=== PATIENT | female | born 1990 | race Caucasian/White ===

== ENCOUNTER 2017-07-02 16:02 | Emergency (ER) | payer BC ==
--- NOTE | 2017-07-02 16:24 | EDM.PDOC ---
ED HPI GENERAL MEDICAL PROBLEM - General Stated Complaint: CHEST PAIN Time Seen by Provider: 07/02/17 16:10 Source of Information: Reports: Patient, Family History Limitations: Reports: No Limitations - History of Present Illness INITIAL COMMENTS - FREE TEXT/NARRATIVE: This is a 26yo F here for chest pain. Patient has a history of DVT, PE and per mother diagnosed with Factor V Leiden and on Eliquis 5mg BID. No history of cardiac concerns but has had prior chest pain with PE but this is worse. 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 Duration: Day(s):, Getting Worse, Waxing/Waning Right Chest Pain Score (Numeric/FACES): 7 - Related Data Allergies Allergy/AdvReac Type Severity Reaction Status Date / Time No Known Allergies Allergy Verified 12/21/13 09:51 Home Meds: Home Meds Apixaban [Eliquis] 5 mg PO BID 07/02/17 [History] Desmopressin [Desmopressin] 0.2 mg PO DAILY 07/02/17 [History] Norethindrone [Norethindrone] 0.35 mg PO DAILY 07/02/17 [History] ED ROS GENERAL - Review of Systems Review Of Systems: ROS reveals no pertinent complaints other than HPI. ED EXAM, GENERAL - Physical Exam Exam: See Below Exam Limited By: No Limitations General Appearance: Alert, WD/WN, No Apparent Distress Eye Exam: Bilateral Eye: EOMI, PERRL Ears: Normal External Exam Nose: Normal Inspection Throat/Mouth: Normal Inspection Head: Atraumatic, Normocephalic Neck: Normal Inspection Respiratory/Chest: No Respiratory Distress, Lungs Clear, Normal Breath Sounds, No Accessory Muscle Use Cardiovascular: Normal Peripheral Pulses, Regular Rate, Rhythm Peripheral Pulses: 2+: Dorsalis Pedis (L), Dorsalis Pedis (R) GI/Abdominal: Normal Bowel Sounds Extremities: Normal Inspection Neurological: Alert, Oriented, CN II-XII Intact Front/Back Body Diagram: 1 - Intercostal pain - reproducible and exactly like her complaint when pressure placed. Course - Vital Signs Last Recorded V/S: Last Vital Signs Temp Pulse 89 07/02/17 16:10 Resp 20 07/02/17 16:10 BP 150/100 H 07/02/17 16:10 Pulse Ox 100 07/02/17 16:10 - Orders/Labs/Meds Orders: Active Orders 24 hr Category Date Time Status EKG Documentation Completion [RC] ASDIRECTED Care 07/02/17 16:19 Ordered Labs: Laboratory Tests 07/02/17 07/02/17 07/02/17 Range/Units 16:41 16:41 16:41 WBC 5.9 (4.0-11.0) K/uL RBC 4.50 (3.80-5.80) M/uL Hgb 13.2 (11.5-16.5) g/dL Hct 38.4 (37.0-47.0) % MCV 85 (76-96) fL MCH 29.3 (27.0-32.0) pg MCHC 34.4 (31.0-35.0) g/dL RDW 12.3 (11.0-16.0) % Plt Count 267 (150-500) K/uL MPV 8.4 (6.0-10.0) fL Neut % (Auto) 63.1 (45.0-70.0) % Lymph % (Auto) 25.7 (20.0-40.0) % [place] % (Auto) 10.1 H (3.0-10.0) % Eos % (Auto) 0.9 L (1.0-5.0) % Baso % (Auto) 0.2 (0.0-0.5) % Neut # (Auto) 3.71 (2.00-7.50) K/uL Lymph # (Auto) 1.51 (1.50-4.00) K/uL [place] # (Auto) 0.59 (0.20-0.80) K/uL Eos # (Auto) 0.05 (0.04-0.40) K/uL Baso # (Auto) 0.01 L (0.02-0.10) K/uL D-Dimer, Quantitative < 100 (0-400) ng/mL Sodium 142 (136-145) mmol/L Potassium 4.1 (3.5-5.1) mmol/L Chloride 104 (98-107) mmol/L Carbon Dioxide 25.2 (21.0-32.0) mmol/L Anion Gap 16.9 H (5.0-15.0) mmol/L BUN 15 D (8-26) mg/dL Creatinine 0.76 (0.55-1.02) mg/dL Est Cr Clr Drug Dosing 94.42 mL/min Estimated GFR (MDRD) > 60 (>60) MLS/MIN BUN/Creatinine Ratio 19.7 (6-25) Glucose 93 (74-100) mg/dL Calcium 9.0 (8.5-10.1) mg/dL Total Bilirubin 0.6 (0.0-1.0) mg/dL AST 29 (15-37) U/L ALT 41 (12-78) U/L Alkaline Phosphatase 91 (46-116) U/L Troponin I < 0.017 (0.000-0.060) ng/mL Total Protein 7.6 (6.4-8.2) g/dL Albumin 3.7 (3.4-5.0) g/dL Globulin 3.9 (2.2-4.2) g/dL Albumin/Globulin Ratio 0.9 (0.8-2.0) Meds: Medications Discontinued Medications Generic Name Dose Route Start Last Admin Trade Name Freq PRN Reason Stop Dose Admin Ketorolac Tromethamine 30 mg 07/02/17 16:19 07/02/17 17:05 Toradol IM 07/02/17 16:20 30 mg ONETIME ONE Administration Departure - Departure Time of Disposition: 17:18 Disposition: Home, Self-Care 01 Condition: Good Clinical Impression: Intercostal muscle strain Qualifiers: Encounter type: initial encounter Qualified Code(s): S29.011A - Strain of muscle and tendon of front wall of thorax, initial encounter Instructions: Ketorolac injection, Naproxen and naproxen sodium oral immediate- release tablets, Chest Wall Pain, Methocarbamol tablets Referrals: PCP,None [Primary Care Provider] - - Problem List Review Problem List Initiated/Reviewed/Updated: Yes - My Orders Last 24 Hours: My Active Orders 07/02/17 16:19 EKG Documentation Completion [RC] ASDIRECTED - Assessment/Plan Last 24 Hours: My Active Orders 07/02/17 16:19 EKG Documentation Completion [RC] ASDIRECTED Plan: Patient to continue supportive care, use of NSAIDS, muscle relaxants as directed and counseled on side effects. Patient to f/u for other symptoms. RTC or ER as needed.
[2017-07-02] MEDS: Ketorolac 30 MG/ML SDV IM ONE (17:05)
--- NOTE | 2017-07-02 18:56 | CR ---
DATE OF SERVICE: 07/02/17 CLINICAL DATA: chest pain PORTABLE CHEST: The heart size is normal. The lungs are clear. No pneumothorax. No pleural effusions. No areas of consolidation. IMPRESSION: No evidence of acute intrathoracic disease. [id number] MTDD
== END 2017-07-02 17:15 | disposition home or self-care (01) ==
LOC: LB.ED 16:02
DX: S29.011A Strain of muscle and tendon of front wall of thorax, initial encounter (principal); R07.82 Intercostal pain; Z79.899 Other long term (current) drug therapy; X50.9XXA Other and unspecified overexertion or strenuous movements or postures, initial encounter
CPT/HCPCS: 36415; 71045; 80053; 84484; 85025; 85379; 93005; 96372; 99285; J1885

== ENCOUNTER 2017-07-30 10:02 | Emergency (ER) | payer BC ==
[2017-07-30] MEDS ORDERED: Ondansetron 4 MG/2 ML SDV ONE ×2 (11:05→12:24)
[2017-07-30] MEDS: Ondansetron 4 MG/2 ML SDV IVPUSH ONE ×2 (11:05→12:30)
--- NOTE | 2017-07-30 11:37 | EDM.PDOC ---
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 According to father( customer care consultant) patient has a bout of sneezing and coughing around 9AM today, when he noticed some swelling over the right surgical scar. the swelling has increased in size since then and patient has been c/o of headache. No altered sensorium. Pt is alert and oriented in the emergency room, c/o pain in her head. and over the right scalp. Pt has been on Eliquis 5mg daily since 07/26/17. Pt did have 2 episodes of vomitus which contained undigested food particles. Onset: Today Onset Date: 07/30/17 Onset Time: 09:00 Duration: Getting Worse Location: Reports: Head Quality: Reports: Ache Severity: Moderate Associated Symptoms: Denies: Confusion, Chest Pain, Cough, Fever/Chills, Headaches, Nausea/Vomiting, Rash, Seizure, Shortness of Breath, Syncope, Weakness Treatments HEATER TENDER: Denies: Breathing Treatments - Related Data Allergies Allergy/AdvReac Type Severity Reaction Status Date / Time No Known Allergies Allergy Verified 07/30/17 11:17 Home Meds: Home Meds Apixaban [Eliquis] 5 mg PO BID 07/02/17 [History] Desmopressin [Desmopressin] 0.2 mg PO DAILY 07/02/17 [History] Norethindrone [Norethindrone] 0.35 mg PO DAILY 07/02/17 [History] ED ROS GENERAL - Review of Systems Review Of Systems: See Below Constitutional: Denies: Fever, Chills, Malaise, Weakness, Night Sweats, Decreased Appetite HEENT: Denies: Rhinitis, Throat Pain Respiratory: Denies: Shortness of Breath, Cough, Sputum Cardiovascular: Denies: Chest Pain, Lightheadedness GI/Abdominal: Reports: Nausea, Vomiting. Denies: Abdominal Pain Musculoskeletal: Denies: Joint Pain, Joint Swelling Skin: Reports: Bruising Neurological: Reports: Headache. Denies: Confusion, Dizziness, Numbness, Paresthesia, Tingling, Weakness, Gait Disturbance Psychiatric: Denies: Agitation, Anxiety, Confusion Hematologic/Lymphatic: Reports: Easy Bleeding, Easy Bruising ED EXAM, GENERAL - Physical Exam Exam: See Below Exam Limited By: No Limitations General Appearance: Alert, WD/WN, No Apparent Distress Eye Exam: Bilateral Eye: EOMI, PERRL Ears: Normal External Exam, Normal Canal, Hearing Grossly Normal, Normal TMs Ear Exam: Bilateral Ear: Auricle Normal, Canal Normal, TM normal Nose: Normal Inspection, Normal Mucosa, No Blood Throat/Mouth: Normal Inspection, Normal Lips, Normal Teeth, Normal Gums, Normal Oropharynx, Normal Voice, No Airway Compromise Head: Other (There is a large S Shaped approximately 10cm sj wound over the right fronto-parietal region. the ree is scalp swelling extending around 8cm by 10 cms , there is some oozing of serous bloody discahrge fromt he surgical site.) Neck: Normal Inspection, Supple, Non-Tender, Full Range of Motion Respiratory/Chest: No Respiratory Distress, Lungs Clear, Normal Breath Sounds, No Accessory Muscle Use, Chest Non-Tender Cardiovascular: Normal Peripheral Pulses, Regular Rate, Rhythm, No Edema, No Gallop, No JVD, No Murmur, No Rub Extremities: Normal Inspection, Normal Range of Motion, Non-Tender, Normal Capillary Refill, No Pedal Edema Neurological: Alert, Oriented, CN II-XII Intact, Normal Cognition, Normal Gait, Normal Reflexes, No Motor/Sensory Deficits Course - Vital Signs Text/Narrative:: Pt did have 2 episodes of projectile vomiting as I was examining the patient. IV was started and she did receive zofran 4mg IV. As this is post neurosurgical complication. I did Contact [facility] and discuss patient with Dr. Lozoya, apparently pt has been on Eliquis. She was sent for CT scan of the head. Also 2 units of FFP were ordered. Per 's recommendation, Transfer to [facility] was arranged with [facility]. I have been reexamining patient every 10 minutes. She has been alert and oriented. Pt's CT head report was available around 11:40 Am, I did contact Dr. Lozoya and discuss the report, which shows 8mm right frontotemproprietal subdural hematoma with 8mm left sided midline shift. Pt did have 3rd episode of vomiting around 11 ;40, but she claims her headache has got a little better.Pt is very alert and oriented , her pupils are equal and reactive. At this point. Pt is planned for transfer to [facility]. Pt is hemodynamically stable at the time of transfer. Last Recorded V/S: Last Vital Signs Temp 97.2 F 07/30/17 10:40 Pulse 80 07/30/17 10:40 Resp BP 125/88 07/30/17 10:40 Pulse Ox 100 07/30/17 10:40 - Orders/Labs/Meds Orders: Active Orders 24 hr Category Date Time Status Head wo Cont [CT] Stat Exams 07/30/17 Taken AB SCREEN (GEL) [BBK] Stat Lab 07/30/17 11:15 Results ABO/RH TYPE [BBK] Stat Lab 07/30/17 11:15 Results FRESH FROZEN PLASMA [BBK] Stat Lab 07/30/17 11:15 Results PATIENT RETYPE [BBK] Stat Lab 07/30/17 11:15 Results Labs: Laboratory Tests 07/30/17 07/30/17 Range/Units 11:15 11:15 WBC 19.2 H D (4.0-11.0) K/uL RBC 5.03 (3.80-5.80) M/uL Hgb 14.8 (11.5-16.5) g/dL Hct 41.8 (37.0-47.0) % MCV 83 (76-96) fL MCH 29.4 (27.0-32.0) pg MCHC 35.4 H (31.0-35.0) g/dL RDW 12.4 (11.0-16.0) % Plt Count 316 (150-500) K/uL MPV 8.7 (6.0-10.0) fL Neut % (Auto) 79.2 H (45.0-70.0) % Lymph % (Auto) 11.6 L (20.0-40.0) % [place] % (Auto) 5.9 (3.0-10.0) % Eos % (Auto) 3.2 (1.0-5.0) % Baso % (Auto) 0.1 (0.0-0.5) % Neut # (Auto) 15.19 H (2.00-7.50) K/uL Lymph # (Auto) 2.22 (1.50-4.00) K/uL [place] # (Auto) 1.13 H (0.20-0.80) K/uL Eos # (Auto) 0.62 H (0.04-0.40) K/uL Baso # (Auto) 0.01 L (0.02-0.10) K/uL Blood Type B NEGATIVE Meds: Medications Discontinued Medications Generic Name Dose Route Start Last Admin Trade Name Frecami PRN Reason Stop Dose Admin Ondansetron HCl Confirm 07/30/17 11:05 Zofran Administered 07/30/17 11:06 Dose 4 mg .ROUTE .STK-MED ONE Ondansetron HCl 4 mg 07/30/17 11:18 07/30/17 11:05 Zofran IVPUSH 07/30/17 11:19 4 mg ONETIME ONE Administration Departure - Departure Time of Disposition: 12:30 Disposition: DC/Tfer to Acute Hospital 02 Condition: Fair Clinical Impression: Subdural hematoma, acute, Status post craniotomy - Discharge Information Referrals: Darryn Kolb MD [Primary Care Provider] - Forms: ED Department Discharge - Problem List & Annotations (1) Subdural hematoma, acute SNOMED Code(s): 76530259 Code(s): I62.01 - NONTRAUMATIC ACUTE SUBDURAL HEMORRHAGE Status: Acute Current Visit: Yes (2) Status post craniotomy SNOMED Code(s): 130957649, 223648700 Code(s): Z98.890 - OTHER SPECIFIED POSTPROCEDURAL STATES Status: Acute Current Visit: Yes - Problem List Review Problem List Initiated/Reviewed/Updated: Yes - My Orders Last 24 Hours: My Active Orders 07/30/17 Head wo Cont [CT] Stat 07/30/17 11:15 AB SCREEN (GEL) [BBK] Stat ABO/RH TYPE [BBK] Stat FRESH FROZEN PLASMA [BBK] Stat PATIENT RETYPE [BBK] Stat - Assessment/Plan Last 24 Hours: My Active Orders 07/30/17 Head wo Cont [CT] Stat 07/30/17 11:15 AB SCREEN (GEL) [BBK] Stat ABO/RH TYPE [BBK] Stat FRESH FROZEN PLASMA [BBK] Stat PATIENT RETYPE [BBK] Stat Assessment:: left subdural hematoma with midline shift, s/p craniotomy Plan: Pt did have 2 episodes of projectile vomiting as I was examining the patient. IV was started and she did receive zofran 4mg IV. As this is post neurosurgical complication. I did Contact [facility] and discuss patient with Dr. Lozoya, apparently pt has been on Eliquis. She was sent for CT scan of the head. Also 2 units of FFP were ordered. Per 's recommendation, Transfer to [facility] was arranged with [facility]. I have been reexamining patient every 10 minutes. She has been alert and oriented. Pt's CT head report was available around 11:40 Am, I did contact Dr. Lozoya and discuss the report, which shows 8mm right frontotemproprietal subdural hematoma with 8mm left sided midline shift. Pt did have 3rd episode of vomiting around 11 ;40, but she claims her headache has got a little better.Pt is very alert and oriented , her pupils are equal and reactive. At this point. Pt is planned for transfer to [facility]. Pt is hemodynamically stable at the time of transfer.
[2017-07-30] MEDS ORDERED: Etomidate 2 MG/ML 20 ML SDV IVPUSH ONE (13:15)
[2017-07-30] MEDS ORDERED: fentaNYL 250 MCG/5 ML SDV ONE (13:15)
[2017-07-30] MEDS ORDERED: Propofol 200 MG/20 ML SDV ONE (13:15)
[2017-07-30] MEDS ORDERED: Rocuronium 50 MG/5 ML Vial ONE (13:15)
--- NOTE | 2017-07-30 17:32 | CT ---
DATE OF SERVICE: 07/30/17 CLINICAL DATA: POSSIBLE BLEED UNENHANCED BRAIN CT: Multislice axial acquisition through the brain without IV contrast was performed. Comparison is made to a prior exam dated 06/04/17. There is a large craniectomy defect noted in the right parietal region. There is significant swelling of the scalp with hyperdensity adjacent to it consistent with a scalp hematoma. There is an extra-axial crescentic-shaped mixed density collection in the right hemisphere consistent with a subdural hematoma. It does have areas within it that appear to be chronic and areas of hyperdensity within it consistent with an acute rebleed. It measures 7 mm in its maximum thickness. It does produce mass effect on the right cerebral hemisphere and temporal lobe. There is a shift of the midline structures to the left and the suprasellar cistern is effaced. No other significant findings. IMPRESSION: Abnormal exam. See above. The patient's physician was notified of the findings by telephone and by [facility] preliminary radiology report. [id number] MTDD
--- NOTE | 2017-07-30 17:36 | CR ---
DATE OF SERVICE: 07/30/17 CLINICAL DATA: INTUBATION PORTABLE CHEST: Comparison is made to a prior exam dated 07/02/17. Lines and tubes and structure artifact obscure portions of both hemithoraces. The exam was performed during expiration. The patient is also rotated to the left. The heart size is normal. No gross abnormalities within the lungs. [id number] [facility]
== END 2017-07-30 13:30 ==
LOC: LB.ED 10:02
DX: I62.01 Nontraumatic acute subdural hemorrhage (principal); Z98.890 Other specified postprocedural states; Z79.899 Other long term (current) drug therapy
CPT/HCPCS: 36415; 36430; 70450; 71045; 85025; 86850; 86900; 86901; 96374; 99285-25; J2405; J2704; J3010; P9017

== ENCOUNTER → 2019-05-04 | Outpatient (CLI) | payer MEDICAID | LOC: LB.BH 13:00 | PROVIDERS: ATTEND Psychologist | DX: F33.1 Major depressive disorder, recurrent, moderate (principal); F41.1 Generalized anxiety disorder; F40.10 Social phobia, unspecified; F43.10 Post-traumatic stress disorder, unspecified | CPT/HCPCS: 90832 ==

== ENCOUNTER 2019-12-06 16:37 | Emergency (ER) | payer MEDICAID ==
--- NOTE | 2019-12-06 18:20 | EDM.PDOC ---
ED HPI GENERAL MEDICAL PROBLEM - General Chief Complaint: Neuro Symptoms/Deficits Stated Complaint: HEAD Time Seen by Provider: 12/06/19 16:50 Source of Information: Reports: Patient History Limitations: Reports: No Limitations - History of Present Illness INITIAL COMMENTS - FREE TEXT/NARRATIVE: pt presents to the ER with what she describes is the worsening of pain in her left shoulder with intermittent numbness and tingling which moves down her left arm. onset of symptoms between 1-2 weeks ago. pt denies unilateral weakness, facial droop, chest pain, shortness of breath, visual changes/field cuts, changes to taste or smell, fever, chills, nausea, vomiting. 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 ED EXAM, GENERAL - Physical Exam Exam: See Below Exam Limited By: No Limitations General Appearance: Alert, WD/WN, Anxious, Mild Distress Eye Exam: Bilateral Eye: EOMI, PERRL Nose: Normal Inspection, Normal Mucosa Throat/Mouth: Normal Inspection, Normal Lips, Normal Teeth, Normal Gums, Normal Voice, No Airway Compromise Head: Atraumatic Respiratory/Chest: No Respiratory Distress, Lungs Clear, Normal Breath Sounds, No Accessory Muscle Use Cardiovascular: Normal Peripheral Pulses, Regular Rate, Rhythm, No Edema, No Murmur Peripheral Pulses: 2+: Radial (L), Radial (R), Posterior Tibial (L), Posterior Tibial (R) GI/Abdominal: Soft, Non-Tender Extremities: Normal Inspection, Normal Range of Motion, Non-Tender, No Pedal Edema Neurological: Alert, Oriented, CN II-XII Intact, Normal Gait (steady gait, heel to toe walking and heel only and tip toe walking intact. NIH 0) Psychiatric: Normal Affect, Anxious Skin Exam: Warm, Dry, Intact Course - Vital Signs Last Recorded V/S: Last Vital Signs Temp 98.4 F 12/06/19 17:14 Pulse 77 12/06/19 18:13 Resp 16 12/06/19 18:13 BP 149/104 H 12/06/19 18:13 Pulse Ox 100 12/06/19 18:13 - Orders/Labs/Meds Orders: Active Orders 24 hr Category Date Time Status EKG Documentation Completion [RC] ASDIRECTED Care 12/06/19 17:09 Ordered Labs: Laboratory Tests 12/06/19 12/06/19 Range/Units 17:24 17:25 WBC 8.4 (4.0-11.0) K/uL RBC 4.77 (3.80-5.80) M/uL Hgb 14.4 (11.5-16.5) g/dL Hct 43.2 (37.0-47.0) % MCV 91 (76-96) fL MCH 30.2 (27.0-32.0) pg MCHC 33.3 (31.0-35.0) g/dL RDW 12.6 (11.0-16.0) % Plt Count 284 (150-500) K/uL MPV 8.4 (6.0-10.0) fL Neut % (Auto) 56.8 (45.0-70.0) % Lymph % (Auto) 32.5 (20.0-40.0) % [place] % (Auto) 10.5 H (3.0-10.0) % Eos % (Auto) 0.0 L (1.0-5.0) % Baso % (Auto) 0.2 (0.0-0.5) % Neut # (Auto) 4.75 (2.00-7.50) K/uL Lymph # (Auto) 2.72 (1.50-4.00) K/uL [place] # (Auto) 0.88 H (0.20-0.80) K/uL Eos # (Auto) 0.00 L (0.04-0.40) K/uL Baso # (Auto) 0.02 (0.02-0.10) K/uL Sodium 139 (136-145) mmol/L Potassium 4.5 (3.5-5.1) mmol/L Chloride 103 (98-107) mmol/L Carbon Dioxide 26.9 (21.0-32.0) mmol/L Anion Gap 13.6 (5.0-15.0) mmol/L BUN 12 (8-26) mg/dL Creatinine 0.86 (0.55-1.02) mg/dL Est Cr Clr Drug Dosing TNP Estimated GFR (MDRD) > 60 (>60) MLS/MIN BUN/Creatinine Ratio 14.0 (6-25) Glucose 96 (74-100) mg/dL Calcium 9.2 (8.5-10.1) mg/dL Total Bilirubin 0.3 (0.0-1.0) mg/dL AST 23 (15-37) U/L ALT 29 (12-78) U/L Alkaline Phosphatase 88 (46-116) U/L Total Protein 7.8 (6.4-8.2) g/dL Albumin 4.1 (3.4-5.0) g/dL Globulin 3.7 (2.2-4.2) g/dL Albumin/Globulin Ratio 1.1 (0.8-2.0) Departure - Departure Time of Disposition: 17:30 Disposition: DC/Tfer to [facility] 02 Clinical Impression: History of Moyamoya syndrome, Numbness and tingling in left arm - Discharge Information *PRESCRIPTION DRUG MONITORING PROGRAM REVIEWED*: Not Applicable *COPY OF PRESCRIPTION DRUG MONITORING REPORT IN PATIENT DELFIN: Not Applicable Referrals: PCP,None [Primary Care Provider] - Sepsis Event Note (ED) - Evaluation Sepsis Screening Result: No Definite Risk - Focused Exam Vital Signs: Vital Signs Temp Pulse Resp BP Pulse Ox 12/06/19 18:13 77 16 149/104 H 100 12/06/19 17:14 98.4 F 89 16 148/105 H 99 12/06/19 16:52 98.4 F 89 16 148/105 H 100 ED Communication - ED Communication Date/Time Date: 12/06/19 Time Called: 17:30 - Discussed Case With (1) Discussed Case With (1): Admitting Provider Person/s Notified (1): Dr. Price - Problem List & Annotations (1) Status post craniotomy SNOMED Code(s): 947563315, 48743371, 430189578 Code(s): Z98.890 - OTHER SPECIFIED POSTPROCEDURAL STATES Status: Acute Current Visit: No (2) History of Moyamoya syndrome SNOMED Code(s): 721993910 Code(s): Z86.79 - PERSONAL HISTORY OF OTHER DISEASES OF THE CIRCULATORY SYSTEM Status: Acute Current Visit: Yes (3) Numbness and tingling in left arm SNOMED Code(s): 81288569 Code(s): R20.0 - ANESTHESIA OF SKIN; R20.2 - PARESTHESIA OF SKIN Status: Acute Current Visit: Yes - Problem List Review Problem List Initiated/Reviewed/Updated: Yes - My Orders Last 24 Hours: My Active Orders 12/06/19 17:09 EKG Documentation Completion [RC] ASDIRECTED - Assessment/Plan Last 24 Hours: My Active Orders 12/06/19 17:09 EKG Documentation Completion [RC] ASDIRECTED Assessment:: assessment: status post craniotomy history of moyamoya numbness and tingling of left upper extremity plan: transport to [facility] accepting physician Dr. Price for further evaluation and treatment this pt was evaluated in the context of the covid 19 pandemic. differentials considered were nerve impingement of thoracic or cervical spine, CVA.
== END 2019-12-06 18:30 ==
LOC: LB.ED 16:37
DX: R20.2 Paresthesia of skin (principal); Z86.79 Personal history of other diseases of the circulatory system; Z79.899 Other long term (current) drug therapy; Z86.73 Personal history of transient ischemic attack (TIA), and cerebral infarction without residual deficits; Z98.890 Other specified postprocedural states
CPT/HCPCS: 36415; 80053; 85025; 93005; 99285; 99285-25

== ENCOUNTER 2019-12-09 16:45 | Emergency (ER) | payer MEDICAID ==
--- NOTE | 2019-12-09 17:47 | EDM.PDOC ---
ED HPI GENERAL MEDICAL PROBLEM - General Chief Complaint: General Stated Complaint: pain in rt groin Time Seen by Provider: 12/09/19 17:10 Source of Information: Reports: Patient History Limitations: Reports: No Limitations - History of Present Illness INITIAL COMMENTS - FREE TEXT/NARRATIVE: Patient had angiogram with insertion of catheter in right groin. Now with sharp pain in right groin, Has had angiograms before that did not hurt this bad. Patient called the office of provider who recommended she come in for evaluation. Pain increased with palpation of angiogram sight. Onset Date: 12/08/19 Duration: Getting Worse (1 day) Quality: Reports: Sharp Severity: Severe Improves with: Reports: None Worsens with: Reports: Other (Pressure on wound), Movement Right Groin Pain Score (Numeric/FACES): 9 - Related Data Allergies Allergy/AdvReac Type Severity Reaction Status Date / Time No Known Allergies Allergy Verified 12/09/19 17:41 Home Meds: Home Meds Escitalopram Oxalate 30 mg PO DAILY 12/09/19 [History] Gabapentin [Neurontin] 600 mg PO DAILY 12/09/19 [History] Hydroxychloroquine Sulfate [Plaquenil] 200 mg PO BID 12/09/19 [History] Rivaroxaban [Xarelto] 20 mg PO DAILY 12/09/19 [History] atorvaSTATin [Lipitor] 20 mg PO DAILY 12/09/19 [History] sulfaSALAzine 1,000 mg PO DAILY 12/09/19 [History] Past Medical History HEENT History: Reports: Impaired Vision Cardiovascular History: Reports: Blood Clots/VTE/DVT, Other (See Below) Other Cardiovascular History: Christianson Christianson Respiratory History: Reports: None Gastrointestinal History: Reports: None Neurological History: Reports: CVA, Headaches, Chronic Other Neuro History: 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 Hematologic History: Reports: Anticoagulation Therapy - Past Surgical History GI Surgical History: Reports: None Musculoskeletal Surgical History: Reports: Other (See Below) Other Musculoskeletal Surgeries/Procedures:: Fx left hand Social & Family History - Family History Family Medical History: Noncontributory - Tobacco Use Smoking Status *Q: Never Smoker - Caffeine Use Caffeine Use: Reports: Coffee, Energy Drinks, Soda Other Caffeine Use: energy drinks once in awhile - Recreational Drug Use Recreational Drug Use: No ED ROS GENERAL - Review of Systems Review Of Systems: See Below Constitutional: Denies: Fever, Chills, Weakness Respiratory: Denies: Shortness of Breath, Wheezing Cardiovascular: Denies: Chest Pain, Palpitations Endocrine: Denies: Fatigue GI/Abdominal: Denies: Abdominal Pain, Diarrhea, Nausea, Vomiting ED EXAM, GENERAL - Physical Exam Exam: See Below Exam Limited By: No Limitations General Appearance: Alert, WD/WN, Mild Distress Head: Atraumatic, Normocephalic Neck: Normal Inspection, Supple Respiratory/Chest: No Respiratory Distress, Lungs Clear Cardiovascular: Regular Rate, Rhythm, No JVD, No Murmur GI/Abdominal: Soft, Non-Tender Extremities: Normal Inspection, Non-Tender, Other (Right groin wihtout erythema or visible hematoma. NO palpable mass at cath site in right groin) Neurological: Alert, Oriented Skin Exam: Warm, Dry, Intact, Other (NO redness or drainage visible from wound) Course - Vital Signs Last Recorded V/S: Last Vital Signs Temp 97.5 F 12/09/19 17:27 Pulse 83 12/09/19 17:27 Resp 18 12/09/19 17:27 BP 134/82 12/09/19 17:27 Pulse Ox 99 12/09/19 17:27 - Orders/Labs/Meds Meds: Medications Discontinued Medications Generic Name Dose Route Start Last Admin Trade Name [place] PRN Reason Stop Dose Admin Oxycodone/Acetaminophen 10 tab 12/09/19 18:00 Percocet 325-5 Mg .ROUTE 12/09/19 18:01 .STK-MED ONE Departure - Departure Time of Disposition: 17:50 Disposition: Home, Self-Care 01 Condition: Good Clinical Impression: History of femoral angiogram, Groin pain, chronic, right - Discharge Information *PRESCRIPTION DRUG MONITORING PROGRAM REVIEWED*: Yes *COPY OF PRESCRIPTION DRUG MONITORING REPORT IN PATIENT DELFIN: No Instructions: Angiogram, [id number], Acetaminophen; Oxycodone tablets Referrals: PCP,None [Primary Care Provider] - Forms: ED Department Discharge Additional Instructions: Percocet 5/325 mg 1 tablet every 4-6 hours as needed for pain Minimize activity. Rest for next few days Ice pack to groin for 15-20 minutes every 2-3 hours while awake Follow up in clinic in 4-5 days if not improving Return to ED as needed if pain is worsening Sepsis Event Note (ED) - Evaluation Sepsis Screening Result: No Definite Risk
[2019-12-09] MEDS ORDERED: Acetaminophen/oxyCODONE 325-5 MG Tab ONE (18:00)
== END 2019-12-09 18:20 | disposition home or self-care (01) ==
LOC: LB.ED 16:45
DX: R10.31 Right lower quadrant pain (principal); G89.29 Other chronic pain; Z98.62 Peripheral vascular angioplasty status; Z86.73 Personal history of transient ischemic attack (TIA), and cerebral infarction without residual deficits; Z79.899 Other long term (current) drug therapy
CPT/HCPCS: 99283; A9270

== ENCOUNTER 2021-08-08 15:04 | Emergency (ER) | payer MEDICAID ==
[2021-08-08] MEDS: Albuterol/Ipratropium 3.0-0.5 MG/3 ML Neb Soln NEB ONE (17:14)
[2021-08-08] MEDS: Albuterol/Ipratropium 3.0-0.5 MG/3 ML Neb Soln ONE (17:14)
[2021-08-08] MEDS ORDERED: Amoxicillin/Clavulanate K 875-125 MG Tab ONE (18:00)
== END 2021-08-08 18:00 | disposition home or self-care (01) ==
LOC: LB.ED 15:04
DX: J69.0 Pneumonitis due to inhalation of food and vomit (principal); Z79.01 Long term (current) use of anticoagulants; Z79.899 Other long term (current) drug therapy; Z79.82 Long term (current) use of aspirin; Z86.73 Personal history of transient ischemic attack (TIA), and cerebral infarction without residual deficits; Z20.822 Contact with and (suspected) exposure to COVID-19
CPT/HCPCS: 36415; 71250; 80053; 84484; 85025; 93005; 99285-25; A9270-GY; J7620; U0002

== ENCOUNTER 2021-08-12 13:32 | Emergency (ER) | payer MEDICAID ==
[2021-08-12 14:05] VITALS: BP 141/100; PULSE 93
[2021-08-12] MEDS: diphenhydrAMINE 50 MG Cap ONE (14:48)
[2021-08-12] MEDS: diphenhydrAMINE 50 MG Cap PO ONE (14:51)
== END 2021-08-12 15:15 | disposition home or self-care (01) ==
LOC: LB.ED 13:32
DX: J69.0 Pneumonitis due to inhalation of food and vomit (principal); T50.905A Adverse effect of unspecified drugs, medicaments and biological substances, initial encounter; Z86.73 Personal history of transient ischemic attack (TIA), and cerebral infarction without residual deficits; Z79.899 Other long term (current) drug therapy; Z79.82 Long term (current) use of aspirin; Z79.01 Long term (current) use of anticoagulants
CPT/HCPCS: 36415; 71045; 80053; 80307; 81001; 84703; 85025; 99284-25; A9270-GY

== ENCOUNTER 2021-08-17 14:41 | Emergency (ER) | payer MEDICAID ==
[2021-08-17] MEDS: Albuterol/Ipratropium 3.0-0.5 MG/3 ML Neb Soln ONE (15:00)
[2021-08-17] MEDS: Benzonatate 100 MG Cap ONE (15:08)
== END 2021-08-17 15:13 | disposition home or self-care (01) ==
LOC: LB.ED 14:41
DX: R06.02 Shortness of breath (principal); R05.9 Cough, unspecified; Z86.73 Personal history of transient ischemic attack (TIA), and cerebral infarction without residual deficits; Z79.01 Long term (current) use of anticoagulants; Z79.82 Long term (current) use of aspirin; Z79.899 Other long term (current) drug therapy
CPT/HCPCS: 99282; 99284; A9270-GY; J7620